=== PATIENT | female | born 1980 | race Caucasian/White ===

== ENCOUNTER 2017-03-14 13:35 | Emergency (ER) | payer MEDICAID, OTHER ==
[~2017-03-14] VITALS: Ht 162.6 cm; Wt 104.0 kg
[~2017-03-14 13:35] MED LIST: ALBU2.5V3 NEB; ALBU8.5H3 INH; CETI10CA PO; GUAI473L22 PO; IBUP-1542 PO; QVAR40 INH
[2017-03-14 13:49] VITALS: Ht 162.6 cm; Wt 104.0 kg
--- NOTE | 2017-03-14 15:20 | EN ---
Date/Time of Note Date/Time of Note DATE: 03/14/17 TIME: 15:18 ER Progress Note This is a 36-year-old female with a history of asthma presenting to the emergency department with multiple complaints. Patient's primary complaint is that she fell from 3 stories and caused her to have a left lower extremity injury today. Patient complains of left calf, ankle and knee pain. Patient states that she is able to ambulate but has difficulty. She rates the pain 8 out of 10. Patient second complaint is that she has been having asthma exacerbation for the past 2 weeks, she states that her albuterol inhaler does not work and she needs steroids. 10 systems reviewed and are negative except as per history of present illness. GENERAL: WD/WN, in no apparent distress, non-toxic appearing HENT: NC/AT EYES: Conjunctiva normal NECK: Supple. No meningeal signs PULM: Clear to auscultation bilaterally. Normal labored breathing CV: Regular rate and rhythm, no murmurs GI: Soft, non tender, non distended. Normal bowel sounds BACK: No masses, tender to palpation in the lumbar region EXT: Patient is walking with a limp Tender palpation on the left calf, ankle and knee NEURO: Awake and Alert SKIN: No petechiae or rashes PSYCH: Normal mood Plan : Patient has stable vital signs, no respiratory distress. Patient was evaluated in E and will be sent to ER to for imaging and further treatment with asthma exacerbation SHRUTHI HUMMEL PA-C Mar 14, 2017 15:20
[2017-03-14] MEDS ORDERED: IPRATROPIUM (NEB) 0.5 MG/2.5 ML AMP ONE (15:52)
[2017-03-14] MEDS ORDERED: ALBUTEROL 0.5% (NEB) 2.5 MG/0.5 ML AMP ONE (15:52)
[2017-03-14] MEDS ORDERED: TERBUTALINE 1 MG/ML INJ SC STA (15:53)
[2017-03-14] MEDS ORDERED: IPRATROPIUM (NEB) 0.5 MG/2.5 ML AMP INH STA (15:53)
[2017-03-14] MEDS ORDERED: ALBUTEROL 0.5% (NEB) 2.5 MG/0.5 ML AMP INH STA (15:53)
[2017-03-14] MEDS ORDERED: METHYLPREDNISOLONE 40 MG INJ IM STA (15:53)
[2017-03-14] MEDS ORDERED: METHYLPREDNISOLONE 125 MG INJ IM STA (16:13)
--- NOTE | 2017-03-14 16:47 | RADRPT ---
PROCEDURE: XR Ankle. CLINICAL INDICATION: Left ankle pain. TECHNIQUE: Three views of the left ankle were performed. COMPARISON: None. FINDINGS: No acute fracture or dislocation is seen. The ankle mortise is symmetric. No radiopaque foreign body is identified. Mild soft tissue swelling is noted around the ankle. IMPRESSION: 1. No acute fracture or dislocation. 2. Mild soft tissue swelling is noted around the ankle. RPTAT: JJ .Cindy Caceres MD, Date Time Electronically viewed and signed by .Cindy Caceres MD, on 03/14/2017 16:47 .N/
[2017-03-14] MEDS ORDERED: HYDR-902 PO (17:36)
[2017-03-14] MEDS ORDERED: PRED20TA PO (17:36)
[2017-03-14] MEDS ORDERED: ALBU8.5H3 INH (17:36)
--- NOTE | 2017-03-14 17:40 | ERA ---
ER Documentation Chief Complaint Date/Time DATE: 03/14/17 TIME: 17:38 Chief Complaint SOB,HX ASTHMA.LEFT ANKLE PAIN HPI This is a 36-year-old female complains of an asthma exacerbation. The patient has a history of asthma and has had many attacks in the past. She says she had an asthma attack today after falling. She said her son left a banana on the floor and she stepped on it and twisted her ankle and felt her left side. No loss of consciousness denies any headache neck pain chest pain back pain other extremity pain other than her left ankle. She left ankle pain is sharp worse with movement. The patient is able to bear weight and walk. She has no chest pain. She says she is starting to wheeze after she fell and she is here for some asthma exacerbation as well as ankle pain ROS All systems reviewed and are negative except as per history of present illness. Medications Home Meds Active Scripts Hydrocodone/Acetaminophen ([place] 10-325 Tablet) 1 Each Tablet, 1 TAB PO Q6H Y for PAIN, #20 TAB Prov:NICK STOREY DO 03/14/17 Albuterol Sulfate* (Proair HFA*) 8.5 Gm Hfa.aer.ad, 2 PUFF INH Q4, #1 INHALER Prov:NICK STOREY DO 03/14/17 Prednisone* (Prednisone*) 20 Mg Tab, 60 MG PO DAILY for 5 Days, TAB Prov:NICK STOREY DO 03/14/17 Allergies Allergies: Coded Allergies: No Known Allergy (Unverified , 08/15/13) PMhx/Soc History of Surgery: No Anesthesia Reaction: No Hx Neurological Disorder: No Hx Respiratory Disorders: Yes (Asthma) Hx Cardiac Disorders: No Hx Psychiatric Problems: No Hx Miscellaneous Medical Probl: No Hx Alcohol Use: No Hx Substance Use: No Hx Tobacco Use: No Smoking Status: Never smoker FmHx Family History: No coronary disease Physical Exam Vitals Vital Signs Date Time Temp Pulse Resp B/P Pulse Ox O2 Delivery O2 Flow Rate FiO2 03/14/17 17:18 98 Room Air 03/14/17 15:59 97 22 95 Nasal Cannula 3.0 03/14/17 13:49 98.2 88 20 187/99 98 Physical Exam Const: Well-developed, well-nourished Head: Atraumatic, normocephalic Eyes: Normal Conjunctiva, PERRLA, EOMI, normal sclera, no nystagmus ENT: Normal External Ears, Nose and Mouth, moist mucus membranes. Neck: Full range of motion. No meningismus, no lymphadenopathy. Resp: Mild increased work of breathing with diffuse scattered wheezes on expiration with good air movement] Cardio: Regular rate and rhythm, no murmurs, S1 S2 present Abd: Soft, non tender x 4, non distended. Normal bowel sounds, no guarding or rebound, no pulsitile abdominal masses or bruits Skin: No petechiae or rashes, no ecchymosis , no maculopapular rash Back: No midline or flank tenderness Ext: No cyanosis, or edema, FROM x 4, normal inspection, neurovascularly intact x 4, the left ankle has tenderness around the lateral medial and anterior aspects no ligamentous laxity or some mild swelling no ecchymosis it is neurovascularly intact Neur: Awake and alert, STR 5/5 x 4, sensation intact x 4, no focal findings, cerebellum intact Psych: Normal Mood and Affect Results 24 hrs Current Medications Medications (Trade) Dose Ordered Sig/Tony Route PRN Reason Start Time Stop Time Status Last Admin Dose Admin Ipratropium [place] (Atrovent 0.02% (Neb)) 0.5 mg STK-MED ONCE .ROUTE 03/14/17 15:52 03/14/17 15:53 DC Albuterol (Proventil 0.5% (Neb)) 2.5 mg STK-MED ONCE .ROUTE 03/14/17 15:52 03/14/17 15:53 DC Albuterol (Proventil 0.5% (Neb)) 10 mg ONCE STAT INH 03/14/17 15:53 03/14/17 15:55 DC 03/14/17 15:58 Ipratropium [place] (Atrovent 0.02% (Neb)) 1 mg ONCE STAT INH 03/14/17 15:53 03/14/17 15:55 DC 03/14/17 15:58 Methylprednisolone Sodium Succinate (Solu-Medrol) 125 mg ONCE STAT IM 03/14/17 15:53 03/14/17 15:55 DC Terbutaline Sulfate (Brethine) 0.25 mg ONCE STAT SC 03/14/17 15:53 03/14/17 15:55 DC 03/14/17 17:14 Methylprednisolone Sodium Succinate (Solu-Medrol) 125 mg ONCE STAT IM 03/14/17 16:13 03/14/17 16:16 DC 03/14/17 16:56 Procedures/MDM PROCEDURE: XR Ankle. CLINICAL INDICATION: Left ankle pain. TECHNIQUE: Three views of the left ankle were performed. COMPARISON: None. FINDINGS: No acute fracture or dislocation is seen. The ankle mortise is symmetric. No radiopaque foreign body is identified. Mild soft tissue swelling is noted around the ankle. IMPRESSION: 1. No acute fracture or dislocation. 2. Mild soft tissue swelling is noted around the ankle. RPTAT: JJ .Cindy Caceres MD, Date Time Electronically viewed and signed by .Cindy Caceres MD, on 03/14/2017 16: 47 .N/ CC: NICK STOREY DO Patient is given albuterol and Atrovent 1 hour continuous nebulized treatment. Is also given Solu-Medrol 125 mg IM. As well as terbutaline 0.25 mg subcu. After this the patient states she is pretty much better. Reexamination demonstrates no wheezing at room air oxygenation percentage of 99%. Ankle x-ray shows no fracture We will give her a posterior ankle splint with crutches Departure Diagnosis: Primary Impression: Asthma Qualified Code: J45.21 - Mild intermittent asthma with acute exacerbation Additional Impression: Left ankle sprain Qualified Code: S93.402A - Sprain of left ankle, unspecified ligament, initial encounter Condition: Stable Patient Instructions: Treating Ankle Sprains, Asthma, Acute (Adult) NICK STOREY DO Mar 14, 2017 17:40
[2017-03-14] MEDS ORDERED: ALBU2.5V3 NEB (17:53)
[2017-03-14] MEDS ORDERED: HYDROCODONE/APAP (10/325) TAB PO ONE (18:00)
== END 2017-03-14 18:00 | disposition home or self-care (01) ==
LOC: FTE 13:35
DX: J45.21 Mild intermittent asthma with (acute) exacerbation (principal); S93.402A Sprain of unspecified ligament of left ankle, initial encounter; W18.39XA Other fall on same level, initial encounter; Y92.9 Unspecified place or not applicable
CPT/HCPCS: 29515; 73610; 94644; 96372; J2920; J2930; J3105; Z7502; Z7610

== ENCOUNTER 2017-04-16 23:21 | Emergency (ER) | payer MEDICAID ==
[~2017-04-16] VITALS: Ht 167.6 cm; Wt 105.0 kg
[~2017-04-16 23:21] MED LIST changes: +HYDR-902 PO; +PRED20TA PO
[2017-04-16 23:23] VITALS: Ht 167.6 cm; Wt 105.0 kg
[2017-04-17] MEDS ORDERED: ALBUTEROL 0.083% (NEB) 2.5 MG/3 ML AMP HHN STA (00:39)
[2017-04-17] MEDS ORDERED: ALBUTEROL 0.5% (NEB) 2.5 MG/0.5 ML AMP INH STA (00:49)
[2017-04-17] MEDS ORDERED: DEXAMETHASONE 10 MG/ML 1 ML INJ IM ONE (01:00)
[2017-04-17] MEDS ORDERED: IPRATROPIUM (NEB) 0.5 MG/2.5 ML AMP HHN ONE (01:00)
--- NOTE | 2017-04-17 01:36 | RADRPT ---
PROCEDURE: Portable chest x-ray. CLINICAL INDICATION: Shortness of breath. TECHNIQUE: Portable AP view of the chest. COMPARISON: 08/15/2013. FINDINGS: There is focal opacity at the left lung base. The right lung is clear. The cardiac silhouette is m agnified. No pleural effusion is seen. There is no pneumothorax. IMPRESSION: 1. Focal opacity at the left lung base, possibly representing pneumonia or atelectasis. RPTAT: HTAR .Raul Reed MD, Date Time Electronically viewed and signed by .Raul Reed MD, on 04/17/2017 01:36 .R/
[2017-04-17] MEDS ORDERED: AZIT250T94 PO (02:08)
[2017-04-17] MEDS ORDERED: ALBU2.5V3 NEB (02:08)
[2017-04-17] MEDS ORDERED: PRED20TA PO (02:08)
[2017-04-17] MEDS ORDERED: ALBU18HF INHALATION (02:12)
[2017-04-17 02:30] VITALS: BP 133/92; PULSE 100; RESP 20; TEMP 98
[2017-04-17] MEDS ORDERED: AZITHROMYCIN 250 MG TAB PO ONE (02:30)
--- NOTE | 2017-04-17 04:59 | ERD ---
ER Documentation Chief Complaint Date/Time DATE: 04/17/17 TIME: 04:56 Chief Complaint Asthma attack, cough and fever x 2 weeks HPI This patient is a 36-year-old female with past medical history of asthma presenting to the emergency department with complaints of shortness of breath and wheezing intermittently for the past week. Symptoms are worse at night. Associated symptoms include tactile fevers and cough. She has also had posttussive emesis. Symptoms are worsening overall. She used albuterol inhaler with no relief. She denies other symptoms currently. ROS All systems reviewed and are negative except as per history of present illness. Medications Home Meds Active Scripts Albuterol Sulfate* (Ventolin HFA*) 18 Gm Hfa.aer.ad, 2 PUFF INHALATION Q4H, #1 INHALER Prov:JAYLAN CHAPARRO PA-C 04/17/17 Prednisone* (Prednisone*) 20 Mg Tab, 40 MG PO DAILY for 4 Days, #8 TAB Prov:JAYLAN CHAPARRO PA-C 04/17/17 Albuterol Sulfate* (Albuterol Sulfate* Neb) 0.083%-3 Ml Neb, 2.5 MG NEB Q4 Y for SHORTNESS OF BREATH, #30 EA Prov:JAYLAN CHAPARRO PA-C 04/17/17 Azithromycin* (Zithromax*) 250 Mg Tablet, 250 MG PO .MerlyPACK DIRECTED, #6 TAB TAKE 500 MG (2 TABS) THE FIRST DAY THEN 250 MG (1 TAB) DAYS 2-5 Prov:JAYLAN CHAPARRO PA-C 04/17/17 Albuterol Sulfate* (Albuterol Sulfate* Neb) 0.083%-3 Ml Neb, 2.5 MG NEB Q4 Y for SHORTNESS OF BREATH, #30 EA Prov:NICK STOREY ARomina DO 03/14/17 Hydrocodone/Acetaminophen ([place] 10-325 Tablet) 1 Each Tablet, 1 TAB PO Q6H Y for PAIN, #20 TAB Prov:LIAM STOREYSTOLOS A. DO 03/14/17 Albuterol Sulfate* (Proair HFA*) 8.5 Gm Hfa.aer.ad, 2 PUFF INH Q4, #1 INHALER Prov:LIAM STOREYSTTATIANA A. DO 03/14/17 Prednisone* (Prednisone*) 20 Mg Tab, 60 MG PO DAILY for 5 Days, TAB Prov:NICK STOREY DO 03/14/17 Albuterol Sulfate* (Albuterol Sulfate* Neb) 0.083%-3 Ml Neb, 2.5 MG NEB Q4 Y for SHORTNESS OF BREATH, #30 EA Prov:EVY PEREZ 01/21/17 Beclomethasone Dip (Qvar 40) 1 Puff Inha, 2 PUFF INH BID, #1 INHALER Prov:VEL BOSWELL NP 01/21/17 Ibuprofen* (Motrin*) 600 Mg Tab, 600 MG PO Q6H Y for PAIN AND OR ELEVATED TEMP, #30 TAB Prov:VEL BOSWELL NP 01/21/17 Cetirizine Hcl* (Zyrtec*) 10 Mg Capsule, 10 MG PO DAILY, #30 TAB.CHEW Prov:VEL BOSWELL NP 01/21/17 Guaifenesin-Codeine Phosphate* (Guaifenesin* AC Cough Syrup) 473 Ml Liquid, 10 ML PO Q4H Y for COUGH, #60 ML Prov:VEL BOSWELL NP 01/21/17 Albuterol Sulfate* (Proair HFA*) 8.5 Gm Hfa.aer.ad, 2 PUFF INH Q4H Y for WHEEZING AND SOB, #1 INHALER Prov:VEL BOSWELL NP 01/21/17 Reported Medications Albuterol Sulfate* (Proair HFA*) Unknown Strength Hfa.aer.ad, INH Q6, #1 INHALER 01/21/17 Allergies Allergies: Coded Allergies: No Known Allergy (Unverified , 08/15/13) PMhx/Soc Medical and Surgical Hx: pt denies Surgical Hx History of Surgery: No Anesthesia Reaction: No Hx Neurological Disorder: No Hx Respiratory Disorders: Yes (Asthma) Hx Cardiac Disorders: No Hx Psychiatric Problems: No Hx Miscellaneous Medical Probl: No Hx Alcohol Use: No Hx Substance Use: No Hx Tobacco Use: No Smoking Status: Never smoker Physical Exam Vitals Vital Signs Date Time Temp Pulse Resp B/P Pulse Ox O2 Delivery O2 Flow Rate FiO2 04/17/17 02:30 98.0 100 20 133/92 96 Room Air 04/17/17 00:55 94 20 99 21 04/16/17 23:23 99.3 103 20 130/93 100 Physical Exam Const: Nontoxic, well-appearing female in no acute distress. Head: Atraumatic Eyes: Normal Conjunctiva ENT: Normal External Ears, Nose and Mouth. Neck: Full range of motion..~ No meningismus. Resp: There is inspiratory wheezing noted to bilateral upper lung andujar, worse on the left. No crackles noted. No signs of respiratory distress. Cardio: Regular rate and rhythm, no murmurs Abd: Soft, non tender, non distended. Normal bowel sounds Skin: No petechiae or rashes Back: No midline or flank tenderness Ext: No cyanosis, or edema Neur: Awake and alert Psych: Normal Mood and Affect Results 24 hrs Current Medications Medications (Trade) Dose Ordered Sig/Tony Route PRN Reason Start Time Stop Time Status Last Admin Dose Admin Albuterol (Proventil 0.083% (Neb)) 2.5 mg ONCE STAT HHN 04/17/17 00:39 04/17/17 00:40 DC 04/17/17 00:54 Ipratropium [place] (Atrovent 0.02% (Neb)) 0.5 mg ONCE ONCE HHN 04/17/17 01:00 04/17/17 01:01 DC 04/17/17 00:54 Dexamethasone (Decadron) 10 mg ONCE ONCE IM 04/17/17 01:00 04/17/17 01:01 DC 04/17/17 01:08 Albuterol (Proventil 0.5% (Neb)) 10 mg ONCE STAT INH 04/17/17 00:49 04/17/17 00:50 DC 04/17/17 00:54 Azithromycin (Zithromax) 500 mg ONCE ONCE PO 04/17/17 02:30 04/17/17 02:31 DC 04/17/17 02:17 [place] [id number] Radiology Main Line: [phone] DIAGNOSTIC IMAGING REPORT Patient: ANDI BARKER : 1980 Age: 36 Sex: F MR #: [id number] DOS: 04/17/17 0000 Ordering MD: JAYLAN CHAPARRO PA-C [facility] Room[facility]Bed: PROCEDURE: Portable chest x-ray. CLINICAL INDICATION: Shortness of breath. TECHNIQUE: Portable AP view of the chest. COMPARISON: 08/15/2013. FINDINGS: There is focal opacity at the left lung base. The right lung is clear. The cardiac silhouette is magnified. No pleural effusion is seen. There is no pneumothorax. IMPRESSION: 1. Focal opacity at the left lung base, possibly representing pneumonia or atelectasis. RPTAT: HTAR .Raul Reed MD, MD Date Time Electronically viewed and signed by .Raul Reed MD, on 04/17/2017 01:36 .R/ CC: JAYLAN CHAPARRO PA-C Procedures/MDM 36-year-old female presents to the emergency department with complaints of wheezing, shortness of breath, and acute asthma exacerbation. She was given an albuterol ipratropium medication nebulizer in the department and she was feeling improved on reevaluation. She is given 10 mg IM Decadron. She was given 500 mg p.o. azithromycin because chest x-ray was concerning for pneumonia. Chest x-ray was interpreted by the radiologist. The patient did not require further treatment in the department. She was stable prior to discharge. She was suitable for outpatient management with prescriptions for azithromycin, albuterol, and prednisone. Her questions and concerns were addressed. I have low suspicion for status asthmaticus, complicated pneumonia requiring admission, sepsis, or other emergent conditions. Strict ER return precautions were discussed. Close follow-up with the primary care physician was advised. Departure Diagnosis: Primary Impression: Pneumonia Additional Impression: Shortness of breath Condition: Fair Patient Instructions: Pneumonia (Adult) Referrals: [facility] YOU HAVE RECEIVED A MEDICAL SCREENING EXAM AND THE RESULTS INDICATE THAT YOU DO NOT HAVE A CONDITION THAT REQUIRES URGENT TREATMENT IN THE EMERGENCY DEPARTMENT. FURTHER EVALUATION AND TREATMENT OF YOUR CONDITION CAN WAIT UNTIL YOU ARE SEEN IN YOUR DOCTORS OFFICE WITHIN THE NEXT 1-2 DAYS. IT IS YOUR RESPONSIBILITY TO MAKE AN APPOINTMENT FOR FOLOW-UP CARE. IF YOU HAVE A PRIMARY DOCTOR --you should call your primary doctor and schedule an appointment IF YOU DO NOT HAVE A PRIMARY DOCTOR YOU CAN CALL OUR PHYSICIAN REFERRAL HOTLINE AT IF YOU CAN NOT AFFORD TO SEE A PHYSICIAN YOU CAN CHOSE FROM THE FOLLOWING [facility] [address] [facility] [address] [facility] [address] [facility] [address] [facility] [address] [facility] [facility] [address] Additional Instructions: Follow up with your PCP within the next 1-3 days for a repeat evaluation. If you require a referral to a specialist, your Primary Care Provider may be able to provide this for you. In most patient cases, a referral is not required. If you have further questions regarding this matter, please ask your Primary Care Provider. Return the the emergency department immediately if symptoms worsen or change. If you have any questions regarding medications, ask your pharmacist or us before you leave. If any adverse reactions, occur while taking your medications, discontinue the treatment and return to the emergency department immediately. If any new or worsening symptoms, uncontrolled fevers, or other unexplained symptoms occur, return to the emergency department immediately. Take your medications as directed, and complete the entire course of treatment. JAYLAN CHAPARRO PA-C Apr 17, 2017 04:58
== END 2017-04-17 02:31 | disposition home or self-care (01) ==
LOC: FTE 23:21
DX: J18.9 Pneumonia, unspecified organism (principal); J45.909 Unspecified asthma, uncomplicated
CPT/HCPCS: 71010; 94644; 96372; J1100; Z7502; Z7610

== ENCOUNTER 2017-04-23 14:23 | Emergency (ER) | payer MEDICAID ==
[~2017-04-23] VITALS: Ht 167.6 cm; Wt 84.0 kg
[~2017-04-23 14:23] MED LIST changes: +ALBU18HF INHALATION; +AZIT250T94 PO
[2017-04-23 14:25] VITALS: Ht 167.6 cm; Wt 84.0 kg
[2017-04-23] MEDS ORDERED: KETOROLAC 30 MG INJ IV STA (15:11)
[2017-04-23] MEDS ORDERED: ONDANSETRON 4 MG INJ IV STA (15:11)
[2017-04-23] MEDS ORDERED: SOD CHLORIDE 0.9% 1,000 ML IV STA (15:11)
--- NOTE | 2017-04-23 15:33 | ERD ---
ER Documentation Chief Complaint Date/Time DATE: 04/23/17 TIME: 15:28 Chief Complaint fall from stairs , all body hurts (SEPIDEH MOORE NP) HPI This is a 36-year-old female presenting to the emergency department after fall. Patient states patient reports hitting her head and states she did lose consciousness. Patient is unsure how long she was unconscious however she states she felt "sleepy" for about 3 hours after the fall. Patient also states she felt nauseous and vomited 4 times after hitting her head. Nonbloody emesis. Patient now has headache. No confusion or weakness. Patient unable to locate specific area of pain however states her "entire head hurts." Patient denies visual changes. No loss of vision, blurry vision or diplopia. Patient states she has pain "everywhere." Patient states most of her pain is in her left lower extremity and left upper extremity. Patient has difficulty bearing weight and ambulating due to this pain. Patient rating pain 8/10. (SEPIDEH MOORE NP) ROS All systems reviewed and are negative except as per history of present illness. (SEPIDEH MOORE NP) Medications Home Meds Active Scripts Ibuprofen* (Motrin*) 800 Mg Tab, 800 MG PO Q6, #20 TAB Prov:SEPIDEH MOORE NP 04/23/17 Hydrocodone/Acetaminophen ([employer] 5-325 Tablet) 1 Each Tablet, 1 TAB PO Q6H Y for PAIN, #10 TAB Prov:SEPIDEH MOORE NP 04/23/17 Albuterol Sulfate* (Ventolin HFA*) 18 Gm Hfa.aer.ad, 2 PUFF INHALATION Q4H, #1 INHALER Prov:JAYLAN CHAPARRO PA-C 04/17/17 Prednisone* (Prednisone*) 20 Mg Tab, 40 MG PO DAILY for 4 Days, #8 TAB Prov:JAYLAN CHAPARRO PA-C 04/17/17 Albuterol Sulfate* (Albuterol Sulfate* Neb) 0.083%-3 Ml Neb, 2.5 MG NEB Q4 Y for SHORTNESS OF BREATH, #30 EA Prov:JAYLAN CHAPARRO PA-C 04/17/17 Azithromycin* (Zithromax*) 250 Mg Tablet, 250 MG PO .MerlyPACK DIRECTED, #6 TAB TAKE 500 MG (2 TABS) THE FIRST DAY THEN 250 MG (1 TAB) DAYS 2-5 Prov:JAYLAN CHAPARRO PA-C 04/17/17 Albuterol Sulfate* (Albuterol Sulfate* Neb) 0.083%-3 Ml Neb, 2.5 MG NEB Q4 Y for SHORTNESS OF BREATH, #30 EA Prov:NICK STOREY. DO 03/14/17 Hydrocodone/Acetaminophen ([employer] 10-325 Tablet) 1 Each Tablet, 1 TAB PO Q6H Y for PAIN, #20 TAB Prov:SUNILESVINAMANDANICK A. DO 03/14/17 Albuterol Sulfate* (Proair HFA*) 8.5 Gm Hfa.aer.ad, 2 PUFF INH Q4, #1 INHALER Prov:NICK STOREY DO 03/14/17 Prednisone* (Prednisone*) 20 Mg Tab, 60 MG PO DAILY for 5 Days, TAB Prov:NICK STOREY DO 03/14/17 Albuterol Sulfate* (Albuterol Sulfate* Neb) 0.083%-3 Ml Neb, 2.5 MG NEB Q4 Y for SHORTNESS OF BREATH, #30 EA Prov:EVY PEREZ 01/21/17 Beclomethasone Dip (Qvar 40) 1 Puff Inha, 2 PUFF INH BID, #1 INHALER Prov:VEL BOSWELL NP 01/21/17 Ibuprofen* (Motrin*) 600 Mg Tab, 600 MG PO Q6H Y for PAIN AND OR ELEVATED TEMP, #30 TAB Prov:VEL BOSWELL NP 01/21/17 Cetirizine Hcl* (Zyrtec*) 10 Mg Capsule, 10 MG PO DAILY, #30 TAB.CHEW Prov:VEL BOSWELL NP 01/21/17 Guaifenesin-Codeine Phosphate* (Guaifenesin* AC Cough Syrup) 473 Ml Liquid, 10 ML PO Q4H Y for COUGH, #60 ML Prov:VEL BOSWELL NP 01/21/17 Albuterol Sulfate* (Proair HFA*) 8.5 Gm Hfa.aer.ad, 2 PUFF INH Q4H Y for WHEEZING AND SOB, #1 INHALER Prov:VEL BOSWELL NP 01/21/17 Reported Medications Albuterol Sulfate* (Proair HFA*) Unknown Strength Hfa.aer.ad, INH Q6, #1 INHALER 01/21/17 Allergies Allergies: Coded Allergies: No Known Allergy (Unverified , 08/15/13) PMhx/Soc Medical and Surgical Hx: pt denies Surgical Hx History of Surgery: No Anesthesia Reaction: No Hx Neurological Disorder: No Hx Respiratory Disorders: Yes (Asthma) Hx Cardiac Disorders: No Hx Psychiatric Problems: No Hx Miscellaneous Medical Probl: No Hx Alcohol Use: No Hx Substance Use: No Hx Tobacco Use: No Smoking Status: Never smoker (SEPIDEH MOORE NP) Physical Exam Vitals Vital Signs Date Time Temp Pulse Resp B/P Pulse Ox O2 Delivery O2 Flow Rate FiO2 04/23/17 18:21 74 22 98 21 04/23/17 14:25 98.6 92 18 132/88 98 (NICOLE,BELTRAN) Physical Exam Const: No acute distress, alert, oriented to person place and time. Head: Atraumatic Eyes: Normal Conjunctiva ENT: Normal External Ears, Nose and Mouth. Neck: Full range of motion..~ No meningismus. Resp: Clear to auscultation bilaterally. No wheezing, rhonchi or crackles. No stridor or labored breathing. Cardio: Regular rate and rhythm, no murmurs Abd: Soft, non tender, non distended. Normal bowel sounds Skin: No petechiae or rashes Back: No midline or flank tenderness Ext: No cyanosis, or edema. Full mobility to bilateral upper extremities. Neur: Awake and alert Psych: Normal Mood and Affect (SEPIDEH MOORE NP) Result Diagram: 04/23/17 1535 04/23/17 1535 Results 24 hrs Laboratory Tests Test 04/23/17 15:35 White Blood Count 8.110^3/ul Red Blood Count 4.7810^6/ul Hemoglobin 14.0g/dl Hematocrit 42.1% Mean Corpuscular Volume 88.1fl Mean Corpuscular Hemoglobin 29.3pg Mean Corpuscular Hemoglobin Concent 33.3g/dl Red Cell Distribution Width 13.2% Platelet Count 47759^3/UL Mean Platelet Volume 9.7fl Neutrophils % 47.3% Lymphocytes % 33.3% Monocytes % 7.0% Eosinophils % 10.9% Basophils % 0.9% Nucleated Red Blood Cells % 0.0/100WBC Neutrophils # 3.810^3/ul Lymphocytes # 2.710^3/ul Monocytes # 0.610^3/ul Eosinophils # 0.910^3/ul Basophils # 0.110^3/ul Nucleated Red Blood Cells # 0.010^3/ul Sodium Level 137mmol/L Potassium Level 3.9mmol/L Chloride Level 104mmol/L Carbon Dioxide Level 25mmol/L Anion Gap 12 Blood Urea Nitrogen 14mg/dl Creatinine 0.70mg/dl Glucose Level 108mg/dl Calcium Level 8.8mg/dl Troponin I < 0.012ng/ml Current Medications Medications (Trade) Dose Ordered Sig/Tony Route PRN Reason Start Time Stop Time Status Last Admin Dose Admin Sodium Chloride (NS) 1,000 ml @ 1,000 mls/hr Q1H STAT IV 04/23/17 15:11 04/23/17 16:10 DC 04/23/17 15:28 Ketorolac Tromethamine (Toradol) 30 mg ONCE STAT IV 04/23/17 15:11 04/23/17 15:17 DC 04/23/17 15:29 Ondansetron HCl (Zofran Inj) 4 mg ONCE STAT IV 04/23/17 15:11 04/23/17 15:17 DC 04/23/17 15:28 Morphine Sulfate (morphine) 4 mg ONCE STAT IV 04/23/17 17:35 04/23/17 17:39 DC 04/23/17 17:53 Albuterol (Proventil 0.083% (Neb)) 5 mg ONCE STAT HHN 04/23/17 17:56 04/23/17 18:01 DC 04/23/17 18:17 (NICOLE,BELTRAN) Procedures/[place] [address] Radiology Main Line: [phone] DIAGNOSTIC IMAGING REPORT Patient: ANDI BARKER : 1980 Age: 36 Sex: F MR #: [id number] DOS: 04/23/17 1511 Ordering MD: SEPIDEH MOORE NP Location: [facility] Room/Bed: PROCEDURE: CT Brain without contrast. CLINICAL INDICATION: Trauma. Loss of consciousness. TECHNIQUE: CT scan of the brain was performed on a multidetector high- resolution CT scan. Axial imaging was obtained of the brain without contrast administration. Coronal and sagittal reformatted images were obtained from the axial source images. Standard CT scan of the head without contrast protocols were performed. The total exam CTDI equals 43.05 mGy and the total exam DLP equals 720.23 mGy- cm. One or more of the following dose reduction techniques were used: - Automated exposure control. - Adjustment of the mA and/or kV according to patient size. Use of iterative reconstruction technique. COMPARISON: None. FINDINGS: The ventricular system and peripheral CSF spaces are unremarkable. Negative for intracranial masses hemorrhages or midline shift. The fay-white matter junction is unremarkable. The bones and calvarium are intact. Paranasal sinuses visualized and mastoids are unremarkable. IMPRESSION: No evidence of intracranial masses hemorrhages or midline shift. MDM: This is a 36-year-old female presenting to emergency department after fall. Patient states 3 days ago she fell walking down the stairs and had loss of consciousness. Patient also had nausea with vomiting. No confusion or weakness. Patient is also having pain to left upper and lower extremity after fall. Patient having difficulty ambulating due to this pain. Labs drawn and IV access obtained per staff electrical engineer. Patient given Toradol and Zofran via IV. Chest x-ray reviewed by radiologist as unremarkable. X-ray left knee reviewed by radiologist as unremarkable. X-ray left ankle reviewed by radiologist as unremarkable . X-ray left tib-fib reviewed by radiologist as unremarkable. Xray left foot reviewed by radiologist as unremarkable. Upon reassessment, patient states she continues to have pain. Patient unable to bend left knee or bear weight to left leg. Consulted Dr. Storey regarding this patient who also examined patient. Dr. Storey suggested getting a left knee MRI due to patient's inability to flex or extend left knee. Patient given Morphine 4mg IV. CBC no severe anemia or infection. BMP no significant electrolyte imbalance. Troponin <0.012 Patient was signed out to Beltran Chandler NP pending MRI results. (SEPIDEH MOORE NP) PROCEDURE: MRI OF THE LEFT KNEE CLINICAL INDICATION: Pain after fall. Left knee pain TECHNIQUE: Multiple MR pulse sequences in multiple planes were obtained. Images were interpreted on a high-resolution PACS system. COMPARISON: Radiographs from the same day. FINDINGS: Medial compartment: The medial meniscus is intact, as is the medial collateral ligament. No high grade chondral defects are suspected. Lateral compartment: The lateral meniscus is intact, as are the structures of the posterolateral corner. No high-grade chondral defects are evident. Intercondylar notch: There is a low grade sprain of the anterior cruciate ligament without fiber disruption or evidence of a recent tibial translation event. The posterior cruciate ligament is intact. Patellofemoral joint: No evidence for chondral defect. The patellar and quadriceps tendons are intact. Other findings: There is no acute fracture or osteonecrosis. No evidence for joint effusion. Trace popliteal cyst is present. IMPRESSION: 1. Low grade sprain of the anterior cruciate ligament without fiber disruption or evidence of a recent tibial translation. 2. Mild sprain at the posterior horn medial meniscal capsular with otherwise intact medial meniscus. 3. No acute tendon or osseous injury. Electronically viewed and signed by .Doni Hickey MD, on 04/23/2017 21:2 I received report from Sepideh Moore NP-case discussed, patient being evaluated for left knee pain decreased range of motion. Patient has had a full evaluation thus far and is going to MRI or ligament evaluation. MRI documents a low grade sprain of ACL without fiber discharge interruption or evidence of recent tibial translation to mild sprain of posterior horn of medial meniscus capsular with otherwise intact medial meniscus. No acute tendon or osseous injury. Plan to discharge patient with Motrin 800 mg as written by Sepideh, pain less than 5/10 on pain scale, [employer] 5 1 tab p.o. every 6 hours as needed pain count of 10 no refills as written by Sepideh pain greater than 5/10 on pain scale. Patient will be placed in a knee immobilizer with crutch training. Instructed to follow-up with primary care physician. I feel the patient is stable for discharge at this time. I have discussed results, examination findings, the treatment plan with the patient and family present prior to discharge. Indications for emergent reevaluation, side effects of medication were also discussed. All questions were answered. Patient verbalizes understanding and agrees with plan of care. (BELTRAN RIVERA) Departure Diagnosis: Primary Impression: Knee sprain Encounter type: initial encounter Involved ligament of knee: unspecified ligament Laterality: left Qualified Code: S83.92XA - Sprain of left knee, unspecified ligament, initial encounter Condition: Good Patient Instructions: Knee Sprain [facility] Additional Instructions: Thank you for for coming to [facility] for your care today. Please ask your nurse or provider if you have questions about your care today and do not leave until all your questions have been answered. Please use any medications given as directed and follow-up with your doctor (or the doctor you were referred to) in the next 2-3 days. If you do not have a primary care doctor you may follow up at the [facility] (listed below). You may also use motrin and tylenol as needed for fever and/or pain unless instructed otherwise by your provider or nurse. Indications for more urgent follow-up have been discussed, but you may return to the Emergency Department at ANY time for any worrisome or worsening symptoms. If you have abdominal pain, please know that no test or exam you received is perfect and you should follow up within 8 hours for continued pain. If you had any imaging studies today, such as an X-Ray or CT Scan, these studies will be reviewed later by a radiologist. You will be called if there are important findings that were not identified today, so make sure the contact information you provided at registration is correct. If you received any narcotic pain control medicine today, such as Vicodin, Morphine or Dilaudid, your coordination and judgment may be affected for a number of hours. Please do not drive or operate heavy machinery, and you may want someone to assist you at home. If you were given a prescription for narcotic medication, be aware that it is very addictive- use sparingly and only if necessary. SEPIDEH MOORE NP Apr 23, 2017 15:33 BELTRAN RIVERA Apr 23, 2017 21:40
[2017-04-23 15:42] LABS: ADD SCAN DIFF NO
[2017-04-23 15:46] LABS: BASOPHIL # 0.1 10^3/ul (0.0-0.1); BASOPHILS % 0.9 % (0.0-2.0); EOSINOPHILS # 0.9 10^3/ul (0.0-0.5); EOSINOPHILS % 10.9 % (0.0-7.0); HEMATOCRIT 42.1 % (37.0-47.0); LYMPHOCYTES # 2.7 10^3/ul (0.8-2.9); LYMPHOCYTES % 33.3 % (15.0-51.0); MEAN CORPUSCULAR HEMOGLOBIN 29.3 pg (29.0-33.0); MEAN CORPUSCULAR HGB CONC 33.3 g/dl (32.0-37.0); MEAN CORPUSCULAR VOLUME 88.1 fl (82.0-101.0); MEAN PLATELET VOLUME 9.7 fl (7.4-10.4); MONOCYTE # 0.6 10^3/ul (0.3-0.9); NEUTROPHIL # 3.8 10^3/ul (1.6-7.5); NEUTROPHILS % 47.3 % (39.0-77.0); PLATELET COUNT 384 10^3/UL (140-415); RED BLOOD COUNT 4.78 10^6/ul (4.20-5.40); RED CELL DISTRIBUTION WIDTH 13.2 % (11.5-14.5); WHITE BLOOD COUNT 8.1 10^3/ul (4.8-10.8)
[2017-04-23 16:03] LABS: ANION GAP 12 (8-16); BLOOD UREA NITROGEN 14 mg/dl (7-20); CALCIUM 8.8 mg/dl (8.4-10.2); CARBON DIOXIDE 25 mmol/L (21-31); CHLORIDE 104 mmol/L (97-110); GLUCOSE 108 mg/dl (70-220); POTASSIUM 3.9 mmol/L (3.5-5.1); SODIUM 137 mmol/L (135-144)
--- NOTE | 2017-04-23 16:16 | RADRPT ---
PROCEDURE: CT Brain without contrast. CLINICAL INDICATION: Trauma. Loss of consciousness. TECHNIQUE: CT scan of the brain was performed on a multidetector high-resolution CT scan. Axial im aging was obtained of the brain without contrast administration. Coronal and sagittal reformatted i mages were obtained from the axial source images. Standard CT scan of the head without contrast prot ocols were performed. The total exam CTDI equals 43.05 mGy and the total exam DLP equals 720.23 mGy-cm. One or more of the following dose reduction techniques were used: - Automated exposure control. - Adjustment of the mA and/or kV according to patient size. Use of iterative reconstruction technique. COMPARISON: None. FINDINGS: The ventricular system and peripheral CSF spaces are unremarkable. Negative for intracranial masses hemorrhages or midline shift. The fay-white matter junction is unremarkable. The bones and farhat rium are intact. Paranasal sinuses visualized and mastoids are unremarkable. IMPRESSION: No evidence of intracranial masses hemorrhages or midline shift. RPTAT:AAJJ Physician Lyssa Date Time Electronically viewed and signed by Physician Lyssa on 04/23/2017 16:15 BM/
[2017-04-23 16:18] LABS: TROPONIN-I < 0.012 ng/ml (0.00-0.12)
--- NOTE | 2017-04-23 17:30 | RADRPT ---
PROCEDURE: Chest Radiograph. CLINICAL INDICATION: Syncope TECHNIQUE: Single frontal chest radiograph. COMPARISON: None available FINDINGS: The cardiomediastinal silhouette is within normal limits. No infiltrate or effusion is seen. Th e bones are intact. IMPRESSION: 1. Unremarkable chest radiograph. RPTAT: KK .Catracho Ortiz MD, Date Time Electronically viewed and signed by .Catracho Ortiz MD, on 04/23/2017 17:30 .B/
--- NOTE | 2017-04-23 17:31 | RADRPT ---
PROCEDURE: Left knee series. CLINICAL INDICATION: Left knee pain TECHNIQUE: 2 views of the left knee. COMPARISON: None available FINDINGS: There is normal mineralization and alignment of the left knee. No acute fracture or dislocation is seen. Joint spaces are well maintained. There is no evidence of osteophyte formation or erosion. No definite joint effusion is seen. The soft tissues are within normal limits. IMPRESSION: 1. Unremarkable left knee x-ray series. RPTAT: KK .Catracho Ortiz MD, Date Time Electronically viewed and signed by .Catracho Ortiz MD, on 04/23/2017 17:30 .B/
--- NOTE | 2017-04-23 17:32 | RADRPT ---
PROCEDURE: Left foot series. CLINICAL INDICATION: Left foot pain TECHNIQUE: Three views of the left foot are available for review. COMPARISON: None available FINDINGS: There is normal mineralization and alignment of the bones of the left foot. Lisfranc's joint appear s intact. There is no evidence of acute fracture or dislocation. Joint spaces are well maintained. No osteophytes or erosions are seen. The soft tissues are within normal limits. IMPRESSION: 1. Unremarkable left foot series. RPTAT: KK .Catracho Ortiz MD, MD Date Time Electronically viewed and signed by .Catracho Ortiz MD, on 04/23/2017 17:31 .B/
[2017-04-23] MEDS ORDERED: morphine 4 MG/ML VIAL IV STA (17:35)
--- NOTE | 2017-04-23 17:35 | RADRPT ---
PROCEDURE: XR Tibia and Fibula. CLINICAL INDICATION: Left lower leg pain after fall TECHNIQUE: Two views of the left tibia and fibula are available for review. COMPARISON: None available FINDINGS: There is normal mineralization and alignment of the bones of the left tibia and fibula. There is no evidence of acute fracture or dislocation. The suboptimally visualized joint spaces appear grossly within normal limits. The soft tissues are unremarkable. IMPRESSION: 1. Unremarkable left tibia and fibula x-ray series. RPTAT: KK .Catracho Ortiz MD, Date Time Electronically viewed and signed by .Catracho Ortiz MD, MD on 04/23/2017 17:35 .B/
[2017-04-23] MEDS ORDERED: ALBUTEROL 0.083% (NEB) 2.5 MG/3 ML AMP HHN STA (17:56)
--- NOTE | 2017-04-23 18:13 | RADRPT ---
PROCEDURE: XR Left Ankle. CLINICAL INDICATION: Trauma. Left ankle pain. TECHNIQUE: 3 views. Frontal, lateral, and oblique. COMPARISON: None. FINDINGS: There is no fracture or dislocation. There is medial soft tissue swelling. Articular surfaces are intact. There is no lytic or blastic lesion. There is no radiopaque foreign body. IMPRESSION: 1. Medial soft tissue swelling. 2. Otherwise normal images of the left ankle. RPTAT: QQ .Raul Tyler MD, MD Date Time Electronically viewed and signed by .Raul Tyler MD, MD on 04/23/2017 18:13 .R/
[2017-04-23] MEDS ORDERED: HYDR-906 PO (19:36)
[2017-04-23] MEDS ORDERED: IBUP800T25 PO (19:36)
--- NOTE | 2017-04-23 21:25 | RADRPT ---
PROCEDURE: MRI OF THE LEFT KNEE CLINICAL INDICATION: Pain after fall. Left knee pain TECHNIQUE: Multiple MR pulse sequences in multiple planes were obtained. Images were interpreted on a high-resolution PACS system. COMPARISON: Radiographs from the same day. FINDINGS: Medial compartment: The medial meniscus is intact, as is the medial collateral ligament. No high gr eileen chondral defects are suspected. Lateral compartment: The lateral meniscus is intact, as are the structures of the posterolateral cor ner. No high-grade chondral defects are evident. Intercondylar notch: There is a low grade sprain of the anterior cruciate ligament without fiber dis ruption or evidence of a recent tibial translation event. The posterior cruciate ligament is intact . Patellofemoral joint: No evidence for chondral defect. The patellar and quadriceps tendons are inta ct. Other findings: There is no acute fracture or osteonecrosis. No evidence for joint effusion. Trace popliteal cyst is present. IMPRESSION: 1. Low grade sprain of the anterior cruciate ligament without fiber disruption or evidence of a rec ent tibial translation. 2. Mild sprain at the posterior horn medial meniscal capsular with otherwise intact medial meniscus . 3. No acute tendon or osseous injury. RPTAT: PP .Doni Hickey MD, Date Time Electronically viewed and signed by .Doni Hickey MD, MD on 04/23/2017 21:24 .d/
[2017-04-23] MEDS ORDERED: HYDROCODONE/APAP (5/325) TAB PO ONE (22:00)
== END 2017-04-23 22:14 | disposition home or self-care (01) ==
LOC: FTE 14:23
DX: S83.92XA Sprain of unspecified site of left knee, initial encounter (principal); J45.909 Unspecified asthma, uncomplicated; R11.2 Nausea with vomiting, unspecified; R55 Syncope and collapse; R05 Cough; W10.9XXA Fall (on) (from) unspecified stairs and steps, initial encounter; Y92.9 Unspecified place or not applicable
CPT/HCPCS: 29505; 70450; 71010; 73560; 73590; 73610; 73630; 73721; 80048; 84484; 85025; 93005; 94664; J1885; J2270; J2405; J7030; Z7610; 36415; 96374; 96375